=== PATIENT | female | born 1960 | race Caucasian/White ===

== ENCOUNTER 2021-01-17 17:36 | Emergency (ER) | payer OTHER ==
[~2021-01-17] VITALS: Ht 157.5 cm; Wt 72.6 kg
[~2021-01-17 17:36] MED LIST: AMLODIPINE BESY10 MG PO; CALCIUM 600 +1 EAC1 PO; CIPRO500 MG PO; CIPROFLOXACIN500 M3 PO; FLAGYL500 MG PO; LISINOPRIL40 MG PO; MIRALAX255 GM PO; P MED; PRINIVIL20 MG PO; [UNRECOGNIZED DRUG - OTHER]
[2021-01-17 18:08] LABS: URINE BILIRUBIN NEGATIVE (Negative); URINE BLOOD TRACE (Negative); URINE CLARITY CLEAR; URINE COLOR YELLOW; URINE GLUCOSE-RANDOM NEGATIVE (Negative); URINE KETONES NEGATIVE (Negative); URINE LEUKOCYTES-REFLEX NEGATIVE (Negative); URINE NITRITE-REFLEX NEGATIVE (Negative); URINE PROTEIN NEGATIVE (Negative); URINE SPECIFIC GRAVITY 1.025 (1.005-1.030); URINE UROBILINOGEN 0.2 E.U./dl (0.2-1.0)
[2021-01-17 18:41] LABS: ABSOLUTE BASOPHILS 0.1 thou/uL (0.0-0.2); ABSOLUTE EOSINOPHILS 0.4 thou/uL (0.0-0.7); ABSOLUTE LYMPHOCYTES 1.3 thou/uL (0.8-5.3); ABSOLUTE MONOCYTES 0.8 thou/uL (0.0-1.2); ABSOLUTE NEUTROPHILS 12.2 thou/uL (1.6-8.1); BASOPHILS 0.4 %; EOSINOPHILS 2.7 %; HEMATOCRIT 41.1 % (37.0-47.0); HEMOGLOBIN 13.5 gm/dL (12.0-15.0); LYMPHOCYTES 8.5 %; MCH 29.6 pg (26.0-34.0); MCHC 32.8 g/dL (28.0-37.0); MCV 90.4 fL (80.0-100.0); MONOCYTES 5.7 %; MPV 7.3 fl. (7.2-11.1); NUCLEATED RBCS 0 /100WBC; PLATELET COUNT* 321 thou/uL (150-400); POLYS 82.7 %; RBC 4.54 mil/uL (4.20-5.00); RDW-CV 13.3 % (10.5-14.5); WBC 14.8 thou/uL (4.0-11.0)
[2021-01-17 18:50] LABS: CALCIUM 9.1 mg/dL (8.5-10.1); CREATININE 0.8 mg/dL (0.6-1.3); POTASSIUM 3.8 mmol/L (3.5-5.1)
[2021-01-17 18:54] LABS: ALBUMIN 4.2 g/dL (3.4-5.0); TOTAL BILIRUBIN 0.2 mg/dL (<0.1-1.0); TOTAL PROTEIN 7.6 g/dL (6.4-8.2)
[2021-01-17] MEDS ORDERED: ZANAFLEX4 MG PO ×2 (20:18)
[2021-01-17] MEDS ORDERED: NORCO5 PO (20:23)
[2021-01-17 20:43] VITALS: BP 136/82
== END 2021-01-17 20:45 | disposition home or self-care (01) ==
LOC: M.ERS 17:36
PROVIDERS: Family Medicine; Nurse Practitioner Family
DX: K29.70 Gastritis, unspecified, without bleeding (principal); R10.30 Lower abdominal pain, unspecified; I10 Essential (primary) hypertension; Z90.49 Acquired absence of other specified parts of digestive tract; Z90.89 Acquired absence of other organs; Z79.899 Other long term (current) drug therapy; Z88.0 Allergy status to penicillin

== ENCOUNTER 2021-01-19 10:29 | Emergency (ER) | payer OTHER ==
[~2021-01-19] VITALS: Ht 157.5 cm; Wt 72.6 kg
[~2021-01-19 10:29] MED LIST changes: +NORCO5 PO; +ZANAFLEX4 MG PO
[2021-01-19 12:55] LABS: HEMATOCRIT 40.5 % (37.0-47.0); HEMOGLOBIN 13.4 gm/dL (12.0-15.0); MCH 29.6 pg (26.0-34.0); MCV 89.6 fL (80.0-100.0); MPV 7.1 fl. (7.2-11.1); NUCLEATED RBCS 0 /100WBC; PLATELET COUNT* 313 thou/uL (150-400); RBC 4.52 mil/uL (4.20-5.00); RDW-CV 13.3 % (10.5-14.5); WBC 14.8 thou/uL (4.0-11.0)
[2021-01-19 13:08] LABS: CALCIUM 9.1 mg/dL (8.5-10.1); CREATININE 0.7 mg/dL (0.6-1.3); POTASSIUM 3.6 mmol/L (3.5-5.1)
[2021-01-19 13:12] LABS: ALBUMIN 3.9 g/dL (3.4-5.0); TOTAL BILIRUBIN 0.4 mg/dL (<0.1-1.0); TOTAL PROTEIN 7.3 g/dL (6.4-8.2)
[2021-01-19 13:33] LABS: ABSOLUTE EOSINOPHILS 1.6 thou/uL (0.0-0.7); ABSOLUTE LYMPHOCYTES 0.7 thou/uL (0.8-5.3); ABSOLUTE MONOCYTES 0.3 thou/uL (0.0-1.2); ABSOLUTE NEUTROPHILS 12.1 thou/uL (1.6-8.1); PLATELET ESTIMATE ADEQUATE
--- NOTE | 2021-01-19 13:39 | EKG ---
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 01/19/21 1339 1225 1225 Riley Zaragoza MD, [facility] /EPI
[2021-01-19] MEDS ORDERED: OMEPRAZOLE 20 M20 M1 PO (14:25)
[2021-01-19] MEDS ORDERED: ONDANSETRON ODT4 MG PO (14:25)
[2021-01-19] MEDS ORDERED: PEPCID20 MG PO (14:25)
[2021-01-19 14:38] VITALS: BP 121/70
== END 2021-01-19 14:39 | disposition home or self-care (01) ==
LOC: M.ERS 10:29
PROVIDERS: Physician Assistant
DX: R10.13 Epigastric pain (principal); M54.5 Low back pain; R11.10 Vomiting, unspecified; I10 Essential (primary) hypertension; Z90.89 Acquired absence of other organs; Z98.890 Other specified postprocedural states; Z90.49 Acquired absence of other specified parts of digestive tract; Z88.0 Allergy status to penicillin